=== PATIENT | male | born 1960 | race African-American/Black ===

== ENCOUNTER 2017-11-19 10:39 | Emergency (ER) | payer MEDICAID ==
[~2017-11-19] VITALS: Ht 175.3 cm; Wt 103.0 kg
[~2017-11-19 10:39] MED LIST: ABIL5 PO; DIPH25CA83; FLUO10CA25; MIRT30TA7 MT
[2017-11-19 11:26] VITALS: BP 196/108
[2017-11-19] MEDS ORDERED: CLONIDINE 0.1MG TABLET PO ONE (11:30)
[2017-11-19 12:02] LABS: BASOPHILS % 1.4 % (0.0-2.0); EOSINOPHILS % 1.9 % (0.0-5.0); HEMATOCRIT. 42.3 % (42.0-52.0); HEMOGLOBIN. 14.4 g/dL (14.0-18.0); LYMPHOCYTES % 32.2 % (20.0-50.0); MEAN CORPUSCULAR HEMOGLOBIN 34.3 pg (28.0-32.0); MEAN CORPUSCULAR VOLUME 100.3 fL (80.0-94.0); MEAN PLATELET VOLUME 8.6 fl (7.4-10.4); NEUTROPHILS % 57.5 % (40.0-76.0); PLATELET 220 x1000/uL (130-400); RED BLOOD CELL COUNT 4.21 mill/uL (4.7-6.1); RED CELL DISTRIBUTION WIDTH 13.4 % (11.6-14.6)
[2017-11-19 12:03] LABS: CHLORIDE 105 mEq/L (98-107)
[2017-11-19 12:09] LABS: ETHANOL BLOOD 41 mg/dL
[2017-11-19] MEDS ORDERED: ACETAMINOPHEN 325MG TABLET PO ONE (12:30)
[2017-11-19] MEDS ORDERED: NITROGLYCERIN OINT 1GM/INCH UDPKT TD ONE (12:45)
[2017-11-19 13:43] LABS: *BENZODIAZEPINES SCREEN URINE NEGATIVE (NEGATIVE); *COCAINE SCREEN URINE NEGATIVE (NEGATIVE); METHADONE URINE SCREEN NEGATIVE (NEGATIVE); OPIATES URINE SCREEN NEGATIVE (NEGATIVE)
[2017-11-19 13:44] LABS: *AMPHETAMINES SCREEN URINE NEGATIVE (NEGATIVE); *BARBITURATES SCREEN URINE NEGATIVE (NEGATIVE); CANNABINOID URINE SCREEN PRESUMTIVE POSITIVE (NEGATIVE); PHENCYCLIDINE URINE SCREEN NEGATIVE (NEGATIVE)
[2017-11-19] MEDS ORDERED: LORAZEPAM 2MG/ML CPJ IV PRN (15:30)
[2017-11-19] MEDS ORDERED: FOLIC ACID 1 MG, THIAMINE HCL 100 MG, MVI, ADULT NO.1 10 ML in DEXTROSE 5% WATER 1,000 ML IV ONE ×4 (15:30)
[2017-11-19] MEDS ORDERED: ACETAMINOPHEN 325MG TABLET PO PRN (15:30)
[2017-11-19] MEDS ORDERED: HYDROCODONE/ACETAMINOPHEN 5/325MG TABLET PO PRN (15:30)
[2017-11-19] MEDS ORDERED: CLONIDINE 0.1MG TABLET PO PRN (15:30)
[2017-11-19] MEDS ORDERED: MIRTAZAPINE 30MG TABLET PO SCH (21:00)
[2017-11-19] MEDS ORDERED: AMLODIPINE 5MG TABLET PO SCH (21:00)
[2017-11-19] MEDS ORDERED: ARIPIPRAZOLE 5MG TABLET PO SCH (21:00)
[2017-11-19] MEDS ORDERED: NITROGLYCERIN OINT 1GM/INCH UDPKT TD SCH (22:00)
[2017-11-20] MEDS ORDERED: FLUOXETINE HCL 10 MG CAPSULE PO SCH (09:00)
== END 2017-11-19 14:48 | disposition left against medical advice (07) ==
LOC: ER 10:54 → EDBEDREQ 13:06 → ENRESERV 13:12 → CANRESERV 13:12 → ER 14:48 → CANRESERV 15:46 → ENRESERV 15:46 → CANBEDREQ 19:00
DX: R07.9 Chest pain, unspecified (principal); I10 Essential (primary) hypertension; R55 Syncope and collapse; F12.10 Cannabis abuse, uncomplicated; F10.10 Alcohol abuse, uncomplicated; I25.2 Old myocardial infarction; F32.9 Major depressive disorder, single episode, unspecified; F17.200 Nicotine dependence, unspecified, uncomplicated; Z79.899 Other long term (current) drug therapy; Z88.8 Allergy status to other drugs, medicaments and biological substances
CPT/HCPCS: 36415; 71045; 80053; 80305; 83880; 84484; 85025; 85610; 93005; 99285; G0482